=== PATIENT | female | born 1960 | race Caucasian/White ===

== ENCOUNTER 2021-03-02 13:03 | Outpatient (CLI) | payer BC | END 2021-03-02 13:04 | disposition home or self-care (01) | LOC: CSHCT 13:03 | PROVIDERS: ATTEND Family Medicine | DX: R10.31 Right lower quadrant pain (principal); Z85.118 Personal history of other malignant neoplasm of bronchus and lung; Z87.898 Personal history of other specified conditions; R19.8 Other specified symptoms and signs involving the digestive system and abdomen | CPT/HCPCS: 74177 ==

== ENCOUNTER 2023-10-24 13:08 | Outpatient (CLI) | payer BC ==
[~2023-10-24 13:08] MED LIST: Magnevist 469MG/ML 20 ML VIAL ONE
== END 2023-10-24 13:09 | disposition home or self-care (01) ==
LOC: CSHMRI 13:08
PROVIDERS: ATTEND Neurological Surgery
DX: C79.31 Secondary malignant neoplasm of brain (principal); Z98.890 Other specified postprocedural states
CPT/HCPCS: 70553; 82565

== ENCOUNTER 2024-05-16 09:33 | Outpatient (CLI) | payer MEDICARE | END 2024-05-16 09:34 | disposition home or self-care (01) | LOC: CSHMAMMO 09:33 | PROVIDERS: ATTEND Family Medicine | DX: M81.0 Age-related osteoporosis without current pathological fracture (principal) | CPT/HCPCS: 77080 ==

== ENCOUNTER 2024-11-14 07:58 | Outpatient (CLI) | payer MEDICARE | END 2024-11-14 07:59 | disposition home or self-care (01) | LOC: CSHCT 07:58 | PROVIDERS: ATTEND Internal Medicine | DX: Z12.2 Encounter for screening for malignant neoplasm of respiratory organs (principal); Z87.891 Personal history of nicotine dependence; R91.1 Solitary pulmonary nodule | CPT/HCPCS: 71271 ==